=== PATIENT | female | born 1980 | race Caucasian/White ===

== ENCOUNTER 2016-06-15 22:19 | Emergency (ER) | payer SELFPAY ==
[~2016-06-15] VITALS: Ht 165.1 cm; Wt 61.0 kg
[2016-06-15 22:21] VITALS: BP 133/75; PULSE 100; RESP 16; TEMP 98.3; O2SAT 95
--- NOTE | 2016-06-15 22:50 | PD ---
HPI Chief Complaint: Skin Problem Time Seen by Provider: 22:40 Travel History International Travel<30 days: No Contact w/Intl Traveler<30days: No Traveled to known affect area: No History of Present Illness HPI This patient was examined in the presence of a female nurse. 36-year-old female with type 2 diabetes presents for evaluation of an abscess on the right buttock. She first noticed a small bump there 2 weeks ago. Over the past few days the area has become progressively larger and more tender. She has had no drainage. No fevers or chills. No trauma to the skin. Denies IV drug use. In addition the patient is requesting a refill of her metformin. She is currently visiting [facility] from [place], she has been here for the past month and she ran out of her metformin. She has no other complaints. [facility] Past Medical History Medical History: Denies Significant Hx Diabetes: Yes (METFORMIN) Patient Takes Glucophage: No Diminished Hearing: No Tetanus Vaccination: < 5 Years Influenza Vaccination: No ?: Not LMP: 05/30/16 Past Surgical History Surgical History: No Previous Surgery Social History Alcohol Use: No Tobacco Use: No Substance Use: No Allergies-Medications (Allergen,Severity, Reaction): Coded Allergies: No Known Allergies (Unverified , 06/15/16) Reported Meds & Prescriptions Reported Meds & Active Scripts Active Metformin (Metformin HCl) 500 Mg Tab 500 Mg PO BIDPC With meals Keflex (Cephalexin) 500 Mg Cap 500 Mg PO Q6H 10 Days Bactrim DS (Sulfamethoxazole-Trimethoprim) 800-160 Mg Tab 1 Tab PO BID Review of Systems Except as stated in HPI: all other systems reviewed are Neg Physical Exam Narrative GENERAL: Well developed well-nourished female in no acute distress SKIN: Warm and dry. Examination of the right buttocks reveals a fluctuant 3 cm abscess with some surrounding erythema. Tender to palpation. No drainage. No perirectal or rectal involvement. CARDIOVASCULAR: Regular rate and rhythm. No murmur appreciated. RESPIRATORY: No accessory muscle use. Clear to auscultation. Breath sounds equal bilaterally. GASTROINTESTINAL: Abdomen soft, non-tender, nondistended. Hepatic and splenic margins not palpable. MUSCULOSKELETAL: No obvious deformities. No clubbing. No cyanosis. No edema. NEUROLOGICAL: Awake and alert. No obvious cranial nerve deficits. Motor grossly within normal limits. Normal speech. Data Data Last Documented VS Vital Signs Date Time Temp Pulse Resp B/P Pulse Ox O2 Delivery O2 Flow Rate FiO2 06/16/16 00:28 16 06/15/16 22:21 98.3 100 133/75 95 Orders Lidocai-Epi 1%-1:100,000 Inj (Xylocaine- (06/15/16 23:00) Wound Culture And Gram Stain (06/15/16 22:48) Blood Glucose (06/15/16 22:48) Acetamin-Hydrocod 325-5 Mg ([place] 5-325 (06/15/16 23:30) Ondansetron Odt (Zofran Odt) (06/15/16 23:30) Basic Metabolic Panel (Bmp) (06/15/16 23:21) Complete Blood Count With Diff (06/15/16 23:21) Sodium Chlor 0.9% 1000 Ml Inj (Ns 1000 M (06/15/16 23:21) Insulin Human Regular Inj (Novolin R Inj (06/15/16 23:30) Clindamycin Inj (Cleocin Inj) (06/15/16 23:30) Labs Laboratory Tests Test 06/15/16 23:30 White Blood Count 9.4 TH/MM3 Red Blood Count 4.30 MIL/MM3 Hemoglobin 13.7 GM/DL Hematocrit 40.1 % Mean Corpuscular Volume 93.4 FL Mean Corpuscular Hemoglobin 31.9 PG Mean Corpuscular Hemoglobin 34.2 % Concent Red Cell Distribution Width 12.7 % Platelet Count 189 TH/MM3 Mean Platelet Volume 9.1 FL Neutrophils (%) (Auto) 73.7 % Lymphocytes (%) (Auto) 17.5 % Monocytes (%) (Auto) 7.3 % Eosinophils (%) (Auto) 0.6 % Basophils (%) (Auto) 0.9 % Neutrophils # (Auto) 7.0 TH/MM3 Lymphocytes # (Auto) 1.7 TH/MM3 Monocytes # (Auto) 0.7 TH/MM3 Eosinophils # (Auto) 0.1 TH/MM3 Basophils # (Auto) 0.1 TH/MM3 CBC Comment DIFF FINAL Differential Comment Sodium Level 136 MEQ/L Potassium Level 3.8 MEQ/L Chloride Level 98 MEQ/L Carbon Dioxide Level 30.0 MEQ/L Anion Gap 8 MEQ/L Blood Urea Nitrogen 9 MG/DL Creatinine 0.66 MG/DL Estimat Glomerular Filtration 103 ML/MIN Rate Random Glucose 400 MG/DL Calcium Level 8.7 MG/DL [facility] Medical Decision Making Medical Screen Exam Complete: Yes Emergency Medical Condition: Yes Medical Record Reviewed: Yes Differential Diagnosis Cutaneous abscess, cellulitis, infected cyst, myositis, necrotizing fasciitis Narrative Course 36-year-old female who has had tenderness in the right buttocks for the past 2 weeks, worsening over the past 2 days. Examination reveals a fluctuant abscess with cellulitic changes on the right buttocks with no perirectal involvement. The abscess was drained, the patient verbally consented. Wound culture performed. The patient's blood glucose was 409. Therefore an IV has been established and she will be given an insulin bolus, IV fluids and basic lab work is been performed. The patient was given IV clindamycin. Her lab work was reassuring. No evidence of DKA. No leukocytosis. No electrolyte abnormality. Normal kidney function. The patient's repeat blood sugar is 258. The patient is being discharged with prescriptions for Bactrim, Keflex as well as metformin refill. She is encouraged to return for new or worsening symptoms. Procedures Procedure Narrative INCISION AND DRAINAGE OF ABSCESS: The area was prepped and was sterilely draped. A subcutaneous wheal of 1% Xylocaine with epinephrine with a total number 8 mL was used to anesthetize the area. The area was properly anesthetized. A number 11 scalpel was used to make a 1.5 -cm incision across the area of the abscess. Cultures were obtained. The abscess was drained an irrigated with normal saline. Diagnosis Primary Impression: Abscess Additional Impression: Cellulitis Qualified Code: L03.317 - Cellulitis of buttock Additional Instructions: Medication as prescribed. Stay well hydrated well-nourished. Warm baths 2-3 times a day 10-15 minutes at a time. Follow-up with primary care physician. Return for new or worsening symptoms. Med/Other Pt SpecificInfo: Prescription(s) given, Wound Care Scripts Metformin 500 Mg [id number] Mg PO BIDPC #60 TAB Ref 0 With meals Prov:Scar Montgomery MD 06/16/16 Cephalexin (Keflex)500 Mg [id number] Mg PO Q6H 10 Days Ref 0 Prov:Scar Montgomeyr MD 06/16/16 Sulfamethoxazole-Trimethoprim (Bactrim DS)800-160 Mg Tab1 Tab PO BID #20 TAB Ref 0 Prov:Scar Montgomery MD 06/16/16 Disposition: 01 DISCHARGE HOME Condition: Stable Mandeep Sullivan Jun 15, 2016 22:50
[2016-06-15] MEDS ORDERED: LIDOCAINE 1%/EPINEPHrine 1:100,000 SOLN 20 ML VIAL INFIL ONE (23:00)
[2016-06-15] MEDS ORDERED: SODIUM CHLOR 0.9% 1000 ML INJ 1,000 ML IV SCH (23:21)
[2016-06-15] MEDS ORDERED: ACETAMINOPHEN/HYDROcodone 325 MG/5 MG TAB PO ONE (23:30)
[2016-06-15] MEDS ORDERED: CLINDAMYCIN INJ 600 MG in SODIUM CHLORIDE 0.9% INJ 100 ML IV ONE (23:30)
[2016-06-15] MEDS ORDERED: ONDANSETRON ODT 4 MG TAB PO ONE (23:30)
[2016-06-15] MEDS ORDERED: INSULIN HUMAN REGULAR 1,000 UNITS/10 ML VIAL IVP ONE (23:30)
[2016-06-15 23:52] LABS: BASOPHIL # 0.1 TH/MM3 (0-0.2); BASOPHIL % 0.9 % (0.0-2.0); EOSINOPHIL # 0.1 TH/MM3 (0-0.4); EOSINOPHIL % 0.6 % (0.0-4.0); HEMATOCRIT 40.1 % (35.0-46.0); HEMO FLAGS DIFF FINAL; LYMPH % 17.5 % (9.0-44.0); LYMPHOCYTE # 1.7 TH/MM3 (1.0-4.8); MEAN CELL VOLUME 93.4 FL (80.0-100.0); MEAN CORPUSCULAR HEMOGLOBIN 31.9 PG (27.0-34.0); MEAN CORPUSCULAR HGB CONC 34.2 % (32.0-36.0); MONO % 7.3 % (0.0-8.0); NEUT % 73.7 % (16.0-70.0); PLATELET COUNT 189 TH/MM3 (150-450); RED CELL DISTRIBUTION WIDTH 12.7 % (11.6-17.2); WHITE BLOOD COUNT 9.4 TH/MM3 (4.0-11.0)
[2016-06-16 00:04] LABS: POTASSIUM 3.8 MEQ/L (3.5-5.1)
[2016-06-16 00:28] VITALS: RESP 16
[2016-06-16] MEDS ORDERED: CEPH-460 PO (00:28)
[2016-06-16] MEDS ORDERED: BACT800T5 PO (00:28)
[2016-06-16] MEDS ORDERED: METF500T PO (00:28)
[2016-06-16 01:38] VITALS: BP 145/63; TEMP 98.9
== END 2016-06-16 01:39 | disposition home or self-care (01) ==
LOC: NEPB 22:19
DX: L02.31 Cutaneous abscess of buttock (principal); L03.317 Cellulitis of buttock; E11.9 Type 2 diabetes mellitus without complications; Z79.84 Long term (current) use of oral hypoglycemic drugs
CPT/HCPCS: 10060; 80048; 85025; 86403; 87070; 96365; 96375; 99283; J1815; J7030; 87205